=== PATIENT | female | born 1990 | race Two or more races ===

== ENCOUNTER 2016-08-11 14:50 | Emergency (ER) | payer MEDICAID | END 2016-08-11 16:52 | disposition home or self-care (01) | DX: S30.0XXA Contusion of lower back and pelvis, initial encounter (principal); W01.0XXA Fall on same level from slipping, tripping and stumbling without subsequent striking against object, initial encounter; Y92.019 Unspecified place in single-family (private) house as the place of occurrence of the external cause; R03.0 Elevated blood-pressure reading, without diagnosis of hypertension ==

== ENCOUNTER 2016-10-16 10:07 | Emergency (ER) | payer MEDICAID | END 2016-10-16 11:15 | disposition left against medical advice (07) | DX: Z53.21 Procedure and treatment not carried out due to patient leaving prior to being seen by health care provider (principal) ==

== ENCOUNTER 2016-11-07 16:19 | Emergency (ER) | payer MEDICAID ==
--- NOTE | 2016-11-07 16:31 | ED Physician Documentation ---
PD HPI URI - Stated complaint Stated Complaint: COUGH - History obtained from History obtained from: Patient - History of Present Illness Timing - onset: How many days ago (3-4) Timing duration: Days (3-4) Timing details: Gradual onset, Still present Associated symptoms: Nasal congestion, Sore throat, Productive cough. No: Swollen nodes, NVD, Bilateral edema Contributing factors: No: Sick contact, Travel, COPD / asthma Worsened by: Activity Similar symptoms before: Has not had sx before Recently seen: Not recently seen Review of Systems Constitutional: reports: Chills, Myalgias. denies: Fever Nose: reports: Congestion Throat: reports: Sore throat Respiratory: reports: Dyspnea, Cough, Wheezing GI: denies: Nausea, Vomiting, Diarrhea Skin: denies: Rash, Lesions Neurologic: reports: Generalized weakness. denies: Near syncope, Headache PD PAST MEDICAL HISTORY - Past Medical History Cardiovascular: None Respiratory: None Neuro: None Endocrine/Autoimmune: None GI: None SOCIAL SCIENCE RESEARCH ASSISTANT: None, Other : None HEENT: None Psych: None Derm: None - Past Surgical History Past Surgical History: No - Present Medications Home Medications: Ambulatory Orders Medication Instructions Recorded Confirmed Albuterol Sulfate [Proair Hfa 2 puffs IH QID #1 hfa.aer.ad 11/07/16 Inhaler] Benzonatate [Tessalon] 100 mg PO TID PRN #25 capsule 11/07/16 Dexamethasone [Decadron] 4 mg PO DAILY #5 tablet 11/07/16 guaiFENesin/CODEINE [Robitussin AC] 10 ml PO Q6H PRN #240 ml 11/07/16 - Allergies Allergies/Adverse Reactions: Allergies Allergy/AdvReac Type Severity Reaction Status Date / Time ibuprofen AdvReac Rash Verified 11/07/16 16:26 insect venom AdvReac Rash Verified 11/07/16 16:26 - Social History Does the pt smoke?: No Smoking Status: Never smoker Does the pt drink ETOH?: Yes Does the pt have substance abuse?: Yes - Immunizations Immunizations are current?: No - POLST Patient has POLST: No PD ED PE NORMAL - Vitals Vital signs reviewed: Yes - General General: Alert and oriented X 3, No acute distress, Well developed/nourished - HEENT HEENT: Ears normal, Pharynx benign, Other (hoarse voice, intermittent cough barky) - Neck Neck: Supple, no meningeal sign, No adenopathy - Cardiac Cardiac: RRR, No murmur - Respiratory Respiratory: Clear bilaterally - Abdomen Abdomen: Soft, Non tender - Derm Derm: Normal color, Warm and dry, No rash - Extremities Extremities: No edema, No calf tenderness / cord Results - Vitals Vitals: Vital Signs - 24 hr 11/07/16 16:26 Temperature 37 C Heart Rate 87 Respiratory 20 Rate Blood Pressure 114/73 O2 Saturation 97 Oxygen O2 Source Room air PD MEDICAL DECISION MAKING - ED course Complexity details: considered differential, d/w patient Departure - Departure Disposition: Home, Self Care Clinical Impression: URI (upper respiratory infection) Qualifiers: URI type: unspecified URI Qualified Code(s): J06.9 - Acute upper respiratory infection, unspecified Condition: Stable Record reviewed to determine appropriate education?: Yes Instructions: ED URI Viral W Wheezing Prescriptions: Dexamethasone [Decadron] 4 mg PO DAILY #5 tablet Albuterol Sulfate [Proair Hfa Inhaler] 2 puffs IH QID #1 hfa.aer.ad guaiFENesin/CODEINE [Robitussin AC] 10 ml PO Q6H PRN #240 ml PRN Reason: Cough Benzonatate [Tessalon] 100 mg PO TID PRN #25 capsule PRN Reason: Cough Comments: Drink lots of fluids. Honey tea warmed is good for cough. Albuterol inhaler 2 puffs 4 times daily for 7-10 days to help with cough and breathing. Decadron daily for 5 more days to help with inflammation of airways. Tessalon three time daily for cough; add cough medicine if needed. Should improve over the next few days to a week. Discharge Date/Time: 11/07/16 17:06
[2016-11-07 16:32] VITALS: BP 114/73
[2016-11-07] MEDS ORDERED: BENZONATATE 100 MG CAPSULE PO STA (16:54)
[2016-11-07] MEDS ORDERED: DEXAMETHASONE 10 MG/ML VIAL PO STA (16:54)
[2016-11-07] MEDS ORDERED: DEXAMETHASONE 10 MG/ML VIAL ONE (16:55)
[2016-11-07] MEDS ORDERED: BENZONATATE 100 MG CAPSULE PO ONE (16:55)
== END 2016-11-07 17:06 | disposition home or self-care (01) ==
LOC: ED 16:19
DX: J06.9 Acute upper respiratory infection, unspecified (principal)
CPT/HCPCS: 99283; A9270

== ENCOUNTER 2016-11-15 10:57 | Emergency (ER) | payer MEDICAID ==
[2016-11-15 11:08] VITALS: BP 118/80
--- NOTE | 2016-11-15 11:30 | ED Physician Documentation ---
PD HPI URI - Stated complaint Stated Complaint: SORE THROAT - Chief complaint Chief Complaint: General - History obtained from History obtained from: Patient - History of Present Illness Timing - onset: How many weeks ago (3) Timing duration: Weeks (3) Timing details: Gradual onset, Still present Associated symptoms: Productive cough, Dyspnea. No: Fever, Chills, Sweats, Ear pain, Nasal congestion Contributing factors: No: Sick contact Improves by: Rest, MDI/nebulizer Worsened by: Activity Similar symptoms before: Diagnosis (URI) Recently seen: Emergency Dept (Seen in the ED) - Additional information Additional information: 26 y/o female has had a URI starting about 2 weeks ago and she was treated here by Dr. Ledesma and she has developed a persistent cough with white phlem that is thick and worse when she goes on a run. She has returned to running and runs about 2 miles when she does and she is using her inhaler about once per day after running and she has not had fever or other new symptoms no sore throat or sinus pressure or ear pain. Review of Systems Constitutional: denies: Fever, Chills, Myalgias, Fatigue, Sweats Eyes: denies: Decreased vision Ears: denies: Ear pain Nose: denies: Rhinorrhea / runny nose, Congestion Throat: denies: Sore throat Cardiac: denies: Chest pain / pressure, Palpitations Respiratory: reports: Cough. denies: Dyspnea GI: denies: Abdominal Pain, Nausea, Vomiting : denies: Dysuria, Frequency Skin: denies: Rash PD PAST MEDICAL HISTORY - Past Medical History Past Medical History: No Cardiovascular: None Respiratory: None Neuro: None Endocrine/Autoimmune: None GI: None LEAVE SPECIALIST: None, Other : None HEENT: None Psych: None Derm: None - Past Surgical History Past Surgical History: No - Present Medications Home Medications: Ambulatory Orders Medication Instructions Recorded Confirmed Albuterol Sulfate [Proair Hfa 2 puffs IH QID #1 hfa.aer.ad 11/07/16 11/15/16 Inhaler] Benzonatate [Tessalon] 100 mg PO TID PRN #25 capsule 11/07/16 11/15/16 Dexamethasone [Decadron] 4 mg PO DAILY #5 tablet 11/07/16 11/15/16 Benzonatate [Tessalon] 100 - 200 mg PO TID PRN #20 capsule 11/15/16 Promethazine/Phenyleph/Codeine PO PRN 11/15/16 [Yccatotdjudo-GY-Kcpkfem Syrup] guaiFENesin/CODEINE [Robitussin AC] 10 ml PO Q6H PRN #120 ml 11/15/16 - Allergies Allergies/Adverse Reactions: Allergies Allergy/AdvReac Type Severity Reaction Status Date / Time ibuprofen AdvReac Rash Verified 11/07/16 16:26 insect venom AdvReac Rash Verified 11/07/16 16:26 - Social History Does the pt smoke?: No Smoking Status: Never smoker Does the pt drink ETOH?: Yes Does the pt have substance abuse?: Yes Substance Use and Type: Marijuana - Immunizations Immunizations are current?: No - POLST Patient has POLST: No PD ED PE NORMAL - Vitals Vital signs reviewed: Yes (normal ) - General General: Alert and oriented X 3, No acute distress, Well developed/nourished - HEENT HEENT: Atraumatic, PERRL, EOMI, Ears normal, Moist mucous membranes, Pharynx benign, Dentition benign - Neck Neck: Supple, no meningeal sign, No bony TTP - Cardiac Cardiac: RRR, No murmur - Respiratory Respiratory: No respiratory distress, Clear bilaterally - Abdomen Abdomen: Soft, Non tender - Back Back: No CVA TTP, No spinal TTP - Derm Derm: Normal color, Warm and dry, No rash - Extremities Extremities: No deformity, No edema - Neuro Neuro: Alert and oriented X 3, No motor deficit, No sensory deficit, Normal speech - Psych Psych: Normal mood, Normal affect Results - Vitals Vitals: Vital Signs - 24 hr 11/15/16 11:00 Temperature 36.8 C Heart Rate 91 Respiratory 16 Rate Blood Pressure 118/80 O2 Saturation 98 Oxygen O2 Source Room air PD MEDICAL DECISION MAKING - ED course Complexity details: reviewed old records, considered differential, d/w patient ED course: 26 y/o female recovering from bronchitis has thick phlem production consistent with the terminal phase of bronchitis. Departure - Departure Disposition: 01 Home, Self Care Clinical Impression: Bronchitis Condition: Stable Instructions: ED Bronchitis Asthmatic Follow-Up: Your, doctor [Other] Prescriptions: guaiFENesin/CODEINE [Robitussin AC] 10 ml PO Q6H PRN #120 ml PRN Reason: Cough Benzonatate [Tessalon] 100 - 200 mg PO TID PRN #20 capsule PRN Reason: Cough Comments: Today you are still coughing up thick phlem and this will be present for about 3 weeks and represents the terminal phase of the bronchitis. (you are almost all better)
== END 2016-11-15 12:30 | disposition home or self-care (01) ==
LOC: ED 10:57
DX: J40 Bronchitis, not specified as acute or chronic (principal)
CPT/HCPCS: 99283

== ENCOUNTER 2016-11-19 11:01 | Outpatient (CLI) | payer MEDICAID | END 2016-11-19 11:02 | disposition critical access hospital (66) | LOC: EMS 11:01 | PROVIDERS: ATTEND Surgery | DX: S81.832A Puncture wound without foreign body, left lower leg, initial encounter (principal); S81.831A Puncture wound without foreign body, right lower leg, initial encounter; W54.0XXA Bitten by dog, initial encounter; Y93.01 Activity, walking, marching and hiking; Y92.838 Other recreation area as the place of occurrence of the external cause | CPT/HCPCS: A0425; A0429 ==

== ENCOUNTER 2016-11-19 11:19 | Emergency (ER) | payer MEDICAID ==
[2016-11-19 12:44] VITALS: BP 120/79
[2016-11-19] MEDS ORDERED: LIDOCAINE 1% 2 ML VIAL ONE ×2 (13:02)
--- NOTE | 2016-11-19 13:22 | ED Physician Documentation ---
PD HPI ANIMAL BITE - Stated complaint Stated Complaint: DOG BITE - Chief complaint Chief Complaint: Ext Problem - History obtained from History obtained from: Patient - History of Present Illness Location of injury(ies): RLE, LLE Details of the event: Dog, Immunization unknown, Unprovoked Timing - onset: Today Timing - duration: Hours Timing - details: Abrupt onset, Still present Improved by: Rest, Immobilization Worsened by: Moving, Palpating Associated symptoms: No: Weakness, Numbness, Tingling, Swelling Contributing factors: No: Immunocompromised Similar symptoms before: Has not had sx before Recently seen: Emergency Dept (improved from bronchitis) - Additional information Additional information: 26 y/o female was at [facility] getting ready to take a shower when she was bit from behind by a dog. The dog bit both legs and she had to swat its head to get it to let go. She has a large laceration on the right medial calf and an abrasion to the left posterior calf. Review of Systems Constitutional: denies: Fever Ears: denies: Ear pain Nose: denies: Reviewed and negative Throat: denies: Sore throat Respiratory: reports: Cough (improving). denies: Dyspnea GI: denies: Nausea, Vomiting : denies: Dysuria Skin: reports: Laceration (s), Bite / sting PD PAST MEDICAL HISTORY - Past Medical History Past Medical History: Yes Cardiovascular: None Respiratory: None Neuro: None Endocrine/Autoimmune: None GI: None MATH INSTRUCTOR: None, Other : None HEENT: None Psych: None Derm: None - Past Surgical History Past Surgical History: No - Present Medications Home Medications: Ambulatory Orders Medication Instructions Recorded Confirmed Amox/Clav 875/125 [Augmentin] 1 each PO Q12H #10 tablet 11/19/16 - Allergies Allergies/Adverse Reactions: Allergies Allergy/AdvReac Type Severity Reaction Status Date / Time ibuprofen AdvReac Rash Verified 11/07/16 16:26 insect venom AdvReac Rash Verified 11/07/16 16:26 - Social History Does the pt smoke?: No Smoking Status: Never smoker Does the pt drink ETOH?: Yes Does the pt have substance abuse?: Yes - Immunizations Immunizations are current?: No - POLST Patient has POLST: No PD ED PE NORMAL - Vitals Vital signs reviewed: Yes (hypertensive) - General General: No acute distress, Well developed/nourished - HEENT HEENT: Atraumatic, PERRL - Respiratory Respiratory: No respiratory distress - Derm Derm: Normal color, Warm and dry, No rash - Extremities Extremities: No deformity, No edema, Other (There is a 3.5cm laceration to the medial calf on the right without FB present. There is a smaller abrasion to the proximal left calf posterior. Distal n/v is intact bilaterally ) - Neuro Neuro: No motor deficit, No sensory deficit - Psych Psych: Normal mood, Normal affect Results - Vitals Vitals: Vital Signs - 24 hr 11/19/16 11/19/16 11:20 12:41 Temperature 36.5 C 36.6 C Heart Rate 65 88 Respiratory 18 16 Rate Blood Pressure 133/101 H 120/79 O2 Saturation 97 98 Oxygen O2 Source Room air Procedures - Laceration (location) right calf Length in cm: 3.5 Wound type: Irregular, Clean Neurovascular status: Sensory intact, Motor intact, Vascular intact Anesthesia: Lidocaine 1% Wound Preparation: Hibiclens, Irrigated copiously NS, Wound explored, To the base Skin layer closure: Nylon, Interrupted (4-0), Size #-0 - enter number, Sutures - enter # (2 loosely approximating) Other: Patient tolerated well, No complications, Neurovascular intact, Dressing applied, Tetanus booster given Complexity: Simple PD MEDICAL DECISION MAKING - ED course Complexity details: reviewed old records, re-evaluated patient, considered differential, d/w patient ED course: 26 y/o female with a dog bite to the right calf has a large deep laceration. The wound is extensively irrigated and loosely approximated with 2 sutures. Departure - Departure Disposition: 01 Home, Self Care Clinical Impression: Dog bite of calf Qualifiers: Encounter type: initial encounter Laterality: right Qualified Code(s): S81.851A - Open bite, right lower leg, initial encounter; W54.0XXA - Bitten by dog, initial encounter Condition: Stable Instructions: ED Laceration Ext Sutr Stap Tape Follow-Up: [facility] [Provider Group] Prescriptions: Amox/Clav 875/125 [Augmentin] 1 each PO Q12H #10 tablet Comments: sutures out in 10-14 days
[2016-11-19] MEDS ORDERED: TETANUS/DIPHTHERIA/PERTUSSIS 0.5 ML SYRINGE IM ONE ×2 (13:28→13:30)
== END 2016-11-19 13:45 | disposition home or self-care (01) ==
LOC: EDUNIT# → ED 11:19
DX: S81.852A Open bite, left lower leg, initial encounter (principal); S80.872A Other superficial bite, left lower leg, initial encounter; W54.0XXA Bitten by dog, initial encounter; Z23 Encounter for immunization
CPT/HCPCS: 12002; 90471; 99283

== ENCOUNTER 2016-11-25 11:16 | Emergency (ER) | payer MEDICAID ==
[2016-11-25 11:22] VITALS: BP 122/72
--- NOTE | 2016-11-25 12:03 | ED Physician Documentation ---
PD HPI WOUND RECHECK - Stated complaint Stated Complaint: STITCH REMOVAL - Chief complaint Chief Complaint: Ext Problem - Histroy obtained from History obtained from: Patient - History of Present Illness Location: Left Lower Extremity Timing - onset: How many days ago (7) Associated symptoms: Redness, Swelling Similar symptoms before: Has not had sx before Recently seen: Emergency Dept (Seen here 7 days ago for a dog bite.) - Additional information Additional information: 26-year-old female seen here in the emergency department 7 days ago for a dog bite to her right calf. She was prescribed Augmentin and did not take this. She does have some small amount of redness around the margins of the wound. Review of Systems Constitutional: denies: Fever, Myalgias, Fatigue GI: denies: Nausea, Vomiting Skin: reports: Laceration (s). denies: Rash Musculoskeletal: denies: Neck pain, Back pain, Extremity pain Neurologic: denies: Generalized weakness, Focal weakness PD PAST MEDICAL HISTORY - Past Medical History Past Medical History: No Cardiovascular: None Respiratory: None Neuro: None Endocrine/Autoimmune: None GI: None MAINTENANCE TEAM LEADER: None, Other : None HEENT: None Psych: None Derm: None - Past Surgical History Past Surgical History: No - Present Medications Home Medications: Ambulatory Orders Medication Instructions Recorded Confirmed Amox/Clav 875/125 [Augmentin] 1 each PO Q12H #10 tablet 11/25/16 - Allergies Allergies/Adverse Reactions: Allergies Allergy/AdvReac Type Severity Reaction Status Date / Time ibuprofen AdvReac Rash Verified 11/07/16 16:26 insect venom AdvReac Rash Verified 11/07/16 16:26 - Social History Does the pt smoke?: No Smoking Status: Never smoker Does the pt drink ETOH?: Yes Does the pt have substance abuse?: Yes - Immunizations Immunizations are current?: Yes - POLST Patient has POLST: No PD ED PE NORMAL - Vitals Vital signs reviewed: Yes (Normal) - General General: Alert and oriented X 3, No acute distress, Well developed/nourished ( Normal) - HEENT HEENT: Atraumatic, PERRL - Respiratory Respiratory: No respiratory distress - Derm Derm: Normal color, Warm and dry, No rash - Extremities Extremities: No deformity, Other (There is a L-shaped laceration to the medial aspect of the upper calf on the right side there is some surrounding erythema on one side which is indurated and no fluctuance is present there is no drainage from the wound.) - Neuro Neuro: No motor deficit, No sensory deficit - Psych Psych: Normal mood, Normal affect Results - Vitals Vitals: Vital Signs - 24 hr 11/25/16 11:20 Temperature 36.4 C L Heart Rate 70 Respiratory 16 Rate Blood Pressure 122/72 O2 Saturation 98 Oxygen O2 Source Room air PD MEDICAL DECISION MAKING - ED course Complexity details: reviewed old records, considered differential, d/w patient ED course: 26-year-old female with a dog bite to the calf did not take the antibiotic she was prescribed last week when she had this injury today she has some superficial infection to the skin on one side of the wound I am inclined to treat this she does not have a way to get to the pharmacy this afternoon so we will give her a dose of antibiotic here in the emergency department. I have recommended she keep the sutures in place for another 5 days. The wound itself was widely distracted and there are 2 sutures reapproximating the wound. Departure - Departure Disposition: 01 Home, Self Care Clinical Impression: Wound infection Condition: Stable Instructions: ED Wound Check Laceration FU Infec Follow-Up: [facility] [Provider Group] Prescriptions: Amox/Clav 875/125 [Augmentin] 1 each PO Q12H #10 tablet
[2016-11-25] MEDS ORDERED: AMOX/CLAV 875 MG/125 MG TABLET PO STA (12:05)
[2016-11-25] MEDS ORDERED: AMOX/CLAV 875 MG/125 MG TABLET PO ONE (12:09)
== END 2016-11-25 12:24 | disposition home or self-care (01) ==
LOC: ED 11:16
DX: S81.852A Open bite, left lower leg, initial encounter (principal); L08.9 Local infection of the skin and subcutaneous tissue, unspecified; W54.0XXA Bitten by dog, initial encounter
CPT/HCPCS: 99283; A9270

== ENCOUNTER 2016-12-05 09:06 | Emergency (ER) | payer MEDICAID ==
--- NOTE | 2016-12-05 09:19 | ED Physician Documentation ---
PD HPI WOUND RECHECK - Stated complaint Stated Complaint: STITCH REMOVAL - Histroy obtained from History obtained from: Patient - History of Present Illness Location: Right Lower Extremity Timing - onset: Today Associated symptoms: Redness, Pain Similar symptoms before: Diagnosis (wound infection) Recently seen: Emergency Dept - Additional information Additional information: 26-year-old homeless female [place] the wound was loosely reapproximated and she developed a superficial wound infection she has been on Septra the swelling and redness have improved and are not completely resolved. The wound hurts after she has been on her feet baling hay during the day and today she is asking for something for pain as she is going to be baling hay again today. She states that she has no money to pay for Tylenol And she is allergic to ibuprofen Review of Systems Constitutional: denies: Fever GI: denies: Vomiting Musculoskeletal: reports: Extremity pain. denies: Extremity swelling Neurologic: denies: Generalized weakness, Focal weakness, Numbness PD PAST MEDICAL HISTORY - Past Medical History Cardiovascular: None Respiratory: None Neuro: None Endocrine/Autoimmune: None GI: None BUDGET CLERK: None, Other : None HEENT: None Psych: None Derm: None - Past Surgical History Past Surgical History: No - Present Medications Home Medications: Ambulatory Orders Medication Instructions Recorded Confirmed Sulfamethoxazole/Trimethoprim 1 each PO BID #10 tablet 12/05/16 [Sulfamethoxazole-Tmp Ds Tablet] Tramadol HCl 50 - 100 mg PO Q6HR PRN #10 tablet 12/05/16 - Allergies Allergies/Adverse Reactions: Allergies Allergy/AdvReac Type Severity Reaction Status Date / Time ibuprofen AdvReac Rash Verified 11/07/16 16:26 insect venom AdvReac Rash Verified 11/07/16 16:26 - Social History Does the pt smoke?: No Smoking Status: Never smoker Does the pt drink ETOH?: Yes Does the pt have substance abuse?: Yes - Immunizations Immunizations are current?: Yes - POLST Patient has POLST: No PD ED PE NORMAL - General General: No acute distress - Respiratory Respiratory: No respiratory distress - Derm Derm: Normal color, Warm and dry, No rash - Extremities Extremities: Other (There is a healing right medial proximal calf laceration with mild surrounding erythema and no fluctunace or drainage.) - Neuro Neuro: No motor deficit, No sensory deficit - Psych Psych: Normal mood, Normal affect Results - Vitals Vitals: Oxygen O2 Source Room air PD MEDICAL DECISION MAKING - ED course Complexity details: considered differential, d/w patient ED course: 26-year-old female with a healing wound that was superficially infected appears to have some residual inflammation the sutures were removed Steri-Strips are placed and we will put her back on the Septra she does have some pain associated with this is not able to afford Tylenol and requests tramadol. Departure - Departure Disposition: 01 Home, Self Care Clinical Impression: Wound infection Condition: Stable Instructions: ED Wound Care Follow-Up: Your, doctor [Other] Prescriptions: Tramadol HCl 50 - 100 mg PO Q6HR PRN #10 tablet PRN Reason: Pain Sulfamethoxazole/Trimethoprim [Sulfamethoxazole-Tmp Ds Tablet] 1 each PO BID # 10 tablet
[2016-12-05 09:20] VITALS: BP 119/74
== END 2016-12-05 09:30 | disposition home or self-care (01) ==
LOC: ED 09:06
DX: S81.811D Laceration without foreign body, right lower leg, subsequent encounter (principal); L08.9 Local infection of the skin and subcutaneous tissue, unspecified; W45.8XXD Other foreign body or object entering through skin, subsequent encounter; Z59.0 Homelessness
CPT/HCPCS: 99283